=== PATIENT | male | born 1935 | race Caucasian/White ===

== ENCOUNTER 2020-12-16 16:27 | Outpatient (REF) | payer MEDICARE, SELFPAY ==
[2020-12-16 19:49] LABS: Bilirubin Negative (Negative); Blood Large (Negative); Clarity Cloudy (Clear); Glucose Negative (Negative); Ketones Negative (Negative); Leukocyte Esterase Negative (Negative); Nitrite Negative (Negative); Specific Gravity >= 1.030 (1.005-1.025); Urobilinogen 0.2 EU/dL (Up TO 0.2)
[2020-12-16 20:00] LABS: Bacteria Few HPF (Negative); C & S Indicated? C&S Done As Ordered; Casts Negative LPF (Negative); Crystals Negative HPF (Negative); Epithelial Cells Few HPF (Negative); Mucus Trace (Negative); RBC >50 HPF (0-2); WBC 0-2 HPF (0-5)
== END 2020-12-16 16:28 | disposition home or self-care (01) ==
LOC: LBN 16:27
PROVIDERS: Visit Provider Nurse Practitioner Gerontology
DX: N39.0 Urinary tract infection, site not specified (principal)
CPT/HCPCS: 81003; 81015; 87086

== ENCOUNTER 2020-12-21 17:38 | Outpatient (REF) | payer MEDICARE, SELFPAY ==
[2020-12-21 18:52] LABS: Abs Immature Grans 0.09 10^3/uL (0.0-0.06); Absolute Basophil Count 0.05 10^3/uL (0.0-0.2); Absolute Lymphocyte Count 0.66 10^3/uL (1.2-3.4); Absolute Monocyte Count 0.65 10^3/uL (0.1-0.8); Absolute Neutrophil Count 6.64 10^3/uL (1.2-6.7); Basophils % 0.6; Eosinophils % 1.2; HCT 43.9 % (40.0-50.0); HGB 14.1 g/dL (13.5-17.5); Immature Grans % 1.1; Lymphocytes % 8.1; MCH 29.1 pg (27.0-33.0); MCHC 32.1 % (32.0-36.0); MCV 90.5 fL (80-95); MPV 11.6 fL (8.0-11.0); Monocytes % 7.9; Neutrophils % 81.1; Nucleated RBC 0 %; Platelet Count 292 10^3/uL (130-400); RBC 4.85 10^6/uL (4.36-5.78); RDW 13.8 % (11.8-14.1); RDW-SD 45.8 fL; WBC 8.19 10^3/uL (4.4-10.8)
[2020-12-21 19:39] LABS: ALT 29 U/L (16-63); AST 15 U/L (15-37); Albumin 3.3 g/dL (3.4-5.0); Alkaline Phosphatase 71 U/L (46-116); Anion Gap 10.1 mmol/L (3-11); BUN 19 mg/dL (7-18); Bilirubin, Total 0.6 mg/dL (0.2-1.0); CO2 25.9 mmol/L (21.0-32.0); Calcium 8.9 mg/dL (8.5-10.1); Chloride 104 mmol/L (98-107); Glucose 148 mg/dL (74-106); Potassium 4.3 mmol/L (3.5-5.1); Sodium 140 mmol/L (136-145); TSH (W/Ref FT4) 4.35 uIU/mL (0.36-3.74); Vitamin B12 797 pg/mL (193-986)
[2020-12-21 19:48] LABS: Magnesium 2.2 mg/dL (1.8-2.4)
[2020-12-21 19:53] LABS: Iron 58 ug/dL (65-175); Total Iron Binding Capacity 245 ug/dL (250-450); Transferrin Sat 24 % (20-55)
[2020-12-21 20:08] LABS: FREE T4 1.11 ng/dL (0.76-1.46)
[2020-12-22 18:11] LABS: Folate 6.1 ng/mL (See Note)
== END 2020-12-21 17:39 | disposition home or self-care (01) ==
LOC: LBN 17:38
PROVIDERS: Visit Provider Nurse Practitioner Gerontology
DX: I48.0 Paroxysmal atrial fibrillation; R44.0 Auditory hallucinations; G91.2 (Idiopathic) normal pressure hydrocephalus; F10.27 Alcohol dependence with alcohol-induced persisting dementia; R53.1 Weakness; K70.30 Alcoholic cirrhosis of liver without ascites
CPT/HCPCS: 80053; 82607; 82746; 83540; 83550; 83735; 84439; 84443; 85025

== ENCOUNTER 2021-01-04 16:44 | Outpatient (REF) | payer MEDICARE, SELFPAY ==
[2021-01-04 17:22] LABS: VALPROIC ACID 41.7 ug/mL
[2021-01-04 18:32] LABS: ALT 49 U/L (16-63); AST 28 U/L (15-37); Albumin 2.9 g/dL (3.4-5.0); Alkaline Phosphatase 61 U/L (46-116); Anion Gap 14.2 mmol/L (3-11); BUN 20 mg/dL (7-18); Bilirubin, Total 0.5 mg/dL (0.2-1.0); CO2 23.8 mmol/L (21.0-32.0); CREATININE 0.9 mg/dL (0.70-1.30); Calcium 8.9 mg/dL (8.5-10.1); Chloride 103 mmol/L (98-107); Glucose 121 mg/dL (74-106); Potassium 4.2 mmol/L (3.5-5.1); Sodium 141 mmol/L (136-145)
== END 2021-01-04 16:45 | disposition home or self-care (01) ==
LOC: LBN 16:44
PROVIDERS: Visit Provider Internal Medicine
DX: I48.0 Paroxysmal atrial fibrillation (principal); F10.27 Alcohol dependence with alcohol-induced persisting dementia; F03.90 Unspecified dementia, unspecified severity, without behavioral disturbance, psychotic disturbance, mood disturbance, and anxiety
CPT/HCPCS: 80053; 80164

== ENCOUNTER 2021-02-10 16:11 | Outpatient (REF) | payer MEDICARE, SELFPAY ==
[2021-02-10 16:36] LABS: Abs Immature Grans 0.08 10^3/uL (0.0-0.06); Absolute Basophil Count 0.06 10^3/uL (0.0-0.2); Absolute Eosinophil Count 0.06 10^3/uL (0.0-0.7); Absolute Lymphocyte Count 0.87 10^3/uL (1.2-3.4); Absolute Monocyte Count 0.91 10^3/uL (0.1-0.8); Basophils % 0.8; Eosinophils % 0.8; HCT 41.4 % (40.0-50.0); HGB 13.1 g/dL (13.5-17.5); Immature Grans % 1.1; Lymphocytes % 12.3; MCH 28.4 pg (27.0-33.0); MCHC 31.6 % (32.0-36.0); MCV 89.8 fL (80-95); Monocytes % 12.9; Neutrophils % 72.1; Nucleated RBC 0 %; Platelet Count 264 10^3/uL (130-400); RBC 4.61 10^6/uL (4.36-5.78); RDW 13.5 % (11.8-14.1); RDW-SD 44.2 fL; WBC 7.08 10^3/uL (4.4-10.8)
[2021-02-10 16:46] LABS: VALPROIC ACID 9.7 ug/mL
[2021-02-10 17:06] LABS: Hemoglobin A1C 6.5 % (<5.7)
== END 2021-02-10 16:12 | disposition home or self-care (01) ==
LOC: LBN 16:11
PROVIDERS: Visit Provider Nurse Practitioner Gerontology
DX: E11.65 Type 2 diabetes mellitus with hyperglycemia (principal); R53.1 Weakness; F10.27 Alcohol dependence with alcohol-induced persisting dementia; Z51.81 Encounter for therapeutic drug level monitoring
CPT/HCPCS: 80164; 83036; 85025

== ENCOUNTER 2021-03-21 19:05 | Outpatient (REF) | payer MEDICARE, SELFPAY ==
[2021-03-21 17:28] LABS: Abs Immature Grans 0.09 10^3/uL (0.0-0.06); Absolute Basophil Count 0.08 10^3/uL (0.0-0.2); Absolute Eosinophil Count 0.03 10^3/uL (0.0-0.7); Absolute Lymphocyte Count 0.72 10^3/uL (1.2-3.4); Absolute Neutrophil Count 4.94 10^3/uL (1.2-6.7); Basophils % 1.3; Eosinophils % 0.5; HCT 44.3 % (40.0-50.0); Immature Grans % 1.4; Lymphocytes % 11.3; MCH 28.5 pg (27.0-33.0); MCHC 31.6 % (32.0-36.0); MPV 10.8 fL (8.0-11.0); Monocytes % 7.9; Neutrophils % 77.6; Nucleated RBC 0 %; Platelet Count 287 10^3/uL (130-400); RBC 4.92 10^6/uL (4.36-5.78); RDW 14.7 % (11.8-14.1); RDW-SD 48.3 fL; WBC 6.36 10^3/uL (4.4-10.8)
[2021-03-21 17:36] LABS: VALPROIC ACID 90.6 ug/mL
[2021-03-21 17:37] LABS: ALT 20 U/L (16-63); AST 13 U/L (15-37); Albumin 2.4 g/dL (3.4-5.0); Alkaline Phosphatase 56 U/L (46-116); Anion Gap 5.5 mmol/L (3-11); BUN 18 mg/dL (7-18); Bilirubin, Total 0.3 mg/dL (0.2-1.0); CO2 31.5 mmol/L (21.0-32.0); CREATININE 0.9 mg/dL (0.70-1.30); Calcium 8.8 mg/dL (8.5-10.1); Chloride 105 mmol/L (98-107); Glucose 158 mg/dL (74-106); Sodium 142 mmol/L (136-145)
== END 2021-03-21 19:06 | disposition home or self-care (01) ==
LOC: LBN 19:05
PROVIDERS: Visit Provider Internal Medicine
DX: K70.30 Alcoholic cirrhosis of liver without ascites (principal); R53.1 Weakness; I48.0 Paroxysmal atrial fibrillation; G91.2 (Idiopathic) normal pressure hydrocephalus
CPT/HCPCS: 80053; 80164; 85025

== ENCOUNTER 2021-03-29 15:14 | Outpatient (REF) | payer MEDICARE, SELFPAY ==
--- OUTSIDE RECORDS SUMMARY | 2021-03-29 15:21 | XMS_ITS ---
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 05432525 anxiety disorder Problem Unspecified 401.9 Active 35383428 essential hypertension Problem Alzheimer's G30.9 Active 45495439 disease, unspecified 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 Problem 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 96192629 dementia without behavioral disturbance Problem 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 ALLERGIES No Known Allergies ENCOUNTERS Encounter Location Date Diagnosis [facility] [address] [place] [address] Rd Dec, [facility] [address] [place], [place] [id number] [facility] [address] [place] [address] Rd Nov, Malignant neuroleptic [facility] [address] [place] syndrome G21.0 and [id number] Generalized anxi ety disorder F41.1 [facility] [address] [place] [address] Rd Oct, Other psy chotic disorder [facility] [address] [place] not due t o a substance or [id number] known physiologi dylan condition F28 an d Low back pain M54.5 [facility] [address] [place] [address] Rd Oct, Low back pain M54.5 [facility] [address] [place], [place] [id number] [facility] [address] [place] [address] Rd Jul, Alzheimer 's disease, [facility] [address] [place], [place] unspecifi ed G30.[id number] 04 Dec, 2019 Encounter for general [facility] [address] [place] adult med ical examination [id number] without abnormal findings Z00.00 ; Hydroce phalus, unspecified G91. 9 ; Alzheimer's dise ase, unspecified G30. 9 ; Hyperglycemia, u nspecified R73.[address] for immunization Z23 [address] 15 Feb, 2019 Alzheimer 's disease, [facility] [address] [place] [address] unspecifi ed G30.[id number] Feb, Medicine [address] [place] [id number] Nov, Encounter for general [facility] [address] [place] [address] adult med ical examination [id number] with abnormal fi ndings Z00.01 ; Hydroce phalus, unspecified G91. 9 ; Alzheimer's dise ase, unspecified G30. 9 and Unspecified laz ntia without behavior al disturbance F03. [address] Nov, Alzheimer 's disease, [facility] [address] [place] [address] unspecifi ed G30.[id number] August, Periumbil ic swelling, mass [facility] [address] [place] [address] or lump R 19.[id number] August, Trigger f bel, left ring [facility] [address] [place], [place] finger M6 5.342 ; Encounter [id number] for other prepro cedural examination Z01. 818 and Hydrocephalus, u nspecified G91.[address] Jun, Trigger f bel, left ring [facility] [address] [place] finger M6 5.342 and [id number] Hydrocephalus, u nspecified G91.[address] Nov, [facility] [address] [place] [id number] Nov, Encounter for general [facility] [address] [place] adult med ical examination [id number] with abnormal fi ndings Z00.01 ; Hydroce phalus, unspecified G91. 9 ; Alzheimer's dise ase, unspecified G30. 9 and Confusional arou sals G47.51 [facility] [address] Feb, [facility] [address] [place], [place] [id number] [facility] [address] [place] [address] Rd Nov, Encounter for general [facility] [address] [place] adult med ical examination [id number] with abnormal fi ndings Z00.01 and Dunreith cephalus, unspecified G91. 9 [facility] [address] [place] [address] Rd Sep, Hydroceph alus, unspecified [facility] [address] [place] G91.9 [id number] [facility] [address] [place] [address] Rd August, Alzheimer 's disease, [facility] [address] [place] unspecifi ed G30.9 and [id number] Early-onset cere bellar ataxia G11.1 [facility] [address] [place] [address] Rd Jun, Ataxia, u nspecified R27.0 [facility] [address] [place], [place] [id number] [facility] [address] [place] [address] Rd Jun, [facility] [address] [place] [id number] [address] Jun, Hydroceph alus, unspecified [facility] [address] [place] G91.[id number] Nov, Hydroceph alus, unspecified [facility] [address] [place] G91.9 [id number] [facility] [address] [place] [address] Rd Nov, Encounter for general [facility] [address] [place] adult med ical examination [id number] with abnormal fi ndings Z00.01 and Ataxi a, unspecified R27. 0 [facility] [address] [place] [address] Rd Jul, Dizziness and giddiness [facility] [address] [place], [place] R42 [id number] Nov, Routine g eneral medical [facility] [address] [place] examin[place] [facility] at [facility] [id number] facility V70.0 ; Unspecified esse ntial hypertension 401 .9 and Allergic rhiniti s, cause unspecified 477. [address] [place] [address] 15 Sep, 2014 Dizziness and giddiness [facility] [address] [place], [place] 780.4 [id number] [facility] [address] [place] [address] Rd Jul, Unspecifi ed cataract 366.9 [facility] [address] [place] and Unspe cified [id number] pre-operative ex amination V72.84 [facility] [address] [place] [address] Rd Nov, Routine g eneral medical [facility] [address] [place] examinati on at [facility] [id number] facility V70.0 ; Unspecified esse ntial hypertension 401 .9 ; Allergic rhiniti s, cause unspecified 477. 9 ; Impacted cerumen 380.4 ; Unspecified laby rinthitis 386.30 and Need for prophylactic vac cination and inoculation, Influenza V04.81 [facility] [address] [place] [address] Rd August, [facility] [address] [place], [place] [id number] [facility] [address] [place] [address] Rd Nov, Routine g eneral medical [facility] [address] [place] examin[place] at [facility] [id number] facility V70.0 ; Unspecified esse ntial hypertension 401 .9 and Allergic rhiniti s, cause unspecified 477. 9 [facility] [address] [place] [address] Rd Oct, [facility] [address] [place] [id number] [address] Jan, [facility] [address] [place] [id number] [address] Oct, Routine g eneral medical [facility] [address] [place] examin[place] on at [facility] [id number] facility V70.0 a nd Unspecified esse ntial hypertension 401 .9 [facility] [address] [place] [address] Rd Jun, [facility] [address] [place], [place] [id number] IMMUNIZATIONS Vaccine Route Administration Date Status FLUAD Unknown Dec 19, 2019 Administered Prevnar 13 Unknown Nov 24, 2017 Administered Pneumococcal Unknown Nov 18, 2002 Administered Influenza (split) Unknown Nov 24, 2017 Administered Influenza (split) Unknown 2016 Administered Influenza (split) Unknown Nov 19, 2013 Administered DTaP Unknown Nov 24, 2017 Administered SOCIAL HISTORY Qualifiers Date Never Smoker REASON FOR REFERRAL FUNCTIONAL STATUS PLAN OF CARE Activity Details Follow Up prn Reason: Pending Test Urinalysis, Routine Pending Test Urinalysis, Routine Pending Test Urinalysis, Routine Pending Test Urinalysis, Routine Pending Test Urinalysis, Routine Future/Pending Procedure ECG RECORDING VITAL SIGNS Height 67 in 2020-11-18 Height 67 in 2020-11-10 Height 67 in 2020-07-23 Height 67 in 2019-12-19 Height 67 in 2018-12-09 Height 67 in 2018-08-20 Height 67 in 2018-07-02 Height 67 in 2017-11-23 Height 67 in 2016-11-22 Height 67 in 2016-09-25 Height 67 in 2016-08-24 Height 67 in 2016-06-26 Height 67 in 2016-06-15 Height 67 in 2015-11-22 Height 67 in 2015-07-19 Height 67 in 2014-11-20 Height 67 in 2014-09-28 Height 67 in 2014-07-20 Height 67 in 2013-11-19 Height 67 in 2012-11-18 Height 67 in 2011-10-16 Weight 222 lbs 2019-12-19 Weight 205 lbs 2018-12-09 Weight 210 lbs 2018-08-20 Weight 215 lbs 2018-07-02 Weight 205 lbs 2017-11-23 Weight 188 lbs 2016-11-22 Weight 185 lbs 2016-09-25 Weight 185 lbs 2016-08-24 Weight 185 lbs 2016-06-26 Weight 185 lbs 2016-06-15 Weight 182 lbs 2015-11-22 Weight 182 lbs 2015-07-19 Weight 180 lbs 2014-11-20 Weight 190 lbs 2014-09-28 Weight 185 lbs 2014-07-20 Weight 185 lbs 2013-11-19 Weight 180 lbs 2012-11-18 Weight 169 lbs 2011-10-16 BMI 34.77 kg/m2 2019-12-19 BMI 32.10 kg/m2 2018-12-09 BMI 32.89 kg/m2 2018-08-20 BMI 33.67 kg/m2 2018-07-02 BMI 32.10 kg/m2 2017-11-23 BMI 29.44 kg/m2 2016-11-22 BMI 28.97 kg/m2 2016-09-25 BMI 28.97 kg/m2 2016-08-24 BMI 28.97 kg/m2 2016-06-26 BMI 28.97 kg/m2 2016-06-15 BMI 28.50 kg/m2 2015-11-22 BMI 28.50 kg/m2 2015-07-19 BMI 28.19 kg/m2 2014-11-20 BMI 29.75 kg/m2 2014-09-28 BMI 28.97 kg/m2 2014-07-20 BMI 28.97 kg/m2 2013-11-19 BMI 28.19 kg/m2 2012-11-18 BMI 26.47 kg/m2 2011-10-16 Blood pressure systolic 140 mm Hg 2019-12-19 Blood pressure diastolic 84 mm Hg 2019-12-19 MEDICATIONS Medication Instructions Dosage Frequency Start End Duration Statu s Date Date traZODone HCl Orally Once a 1 tablet at 24h Nov, day(s ) Active 100 MG day bedtime 2020 Fluticasone Nasally Once a inhale 2 24h Acti ve Propionate 50 day sprays into each nostril once daily Aricept 5 MG Orally bid 1 tablet 12h 90 days Active PROCEDURES Procedure Date Ordered Result Body Site DOC MEDS VERIFIED W/PT OR RE September 28, 2014 ANNUAL WELLNESS VST; PPS SUBSQT VST Nov 22, 2015 DOC MEDS VERIFIED W/PT OR RE Nov 19, 2013 PNEUMOC IMM ORDER/ADMIN September 28, 2014 DOC MEDS VERIFIED W/PT OR RE Nov 20, 2014 LIPID PANEL October 16, 2011 ANNUAL WELLNESS VST; PPS SUBSQT VST Nov 18, 2012 COMPREHEN METABOLIC PANEL October 16, 2011 ANNUAL WELLNESS VST; PPS SUBSQT VST Nov 19, 2013 ANNUAL WELLNESS VST; PPS SUBSQT VST Dec 09, 2018 ANNUAL WELLNESS VST; PPS SUBSQT VST October 16, 2011 DOC MEDS VERIFIED W/PT OR RE June 15, 2016 -ELECTROCARDIOGRAM, COMPLETE August 20, 2018 PNEUMOC IMM ORDER/ADMIN September 25, 2016 DOC MEDS VERIFIED W/PT OR RE June 26, 2016 DOC MEDS VERIFIED W/PT OR RE July 19, 2015 URINE-NO MICRO Nov 19, 2013 URINE-NO MICRO Nov 22, 2015 ANNUAL WELLNESS VST; PPS SUBSQT VST Nov 22, 2016 ANNUAL WELLNESS VST; PPS SUBSQT VST Nov 23, 2017 COLONOSCOPY AND BIOPSY 2009-10-15 Normal PNEUMOC IMM ORDER/ADMIN July 20, 2014 PNEUMOC IMM ORDER/ADMIN Nov 22, 2015 PNEUMOC IMM ORDER/ADMIN Nov 18, 2012 ADMN FLU VAC NO FEE SCHED SAME DAY Nov 19, 2013 URINE-NO MICRO Nov 20, 2014 ADMN FLU VAC NO FEE SCHED SAME DAY Dec 19, 2019 Flu Vacc Split 3 yr & > IM Fluvirin Nov 19, 2013 URINE-NO MICRO October 16, 2011 ANNUAL WELLNESS VST; PPS SUBSQT VST Dec 19, 2019 DOC MEDS VERIFIED W/PT OR RE Nov 22, 2015 URINE-NO MICRO Nov 18, 2012 PNEUMOC IMM ORDER/ADMIN August 24, 2016 FLUAD QIV Dec 19, 2019 PNEUMOC IMM ORDER/ADMIN Nov 24, 2015 DOC MEDS VERIFIED W/PT OR RE Nov 22, 2016 PNEUMOC IMM ORDER/ADMIN July 19, 2015 PT RCV HOSPC SRVC ANY TM DUR MSR FL Nov 22, 2016 DOC MEDS VERIFIED W/PT OR RE July 20, 2014 PNEUMOC IMM ORDER/ADMIN Nov 19, 2013 DOC MEDS VERIFIED W/PT OR RE Nov 24, 2015 EAR IRRIGATION Nov 19, 2013 DOC MEDS VERIFIED W/PT OR RE August 24, 2016 DOC MEDS VERIFIED W/PT OR RE Nov 18, 2012 ANNUAL WELLNESS VST; PPS SUBSQT VST Nov 20, 2014 PNEUMOC IMM ORDER/ADMIN June 26, 2016 PNEUMOC IMM ORDER/ADMIN June 15, 2016 DOC MEDS VERIFIED W/PT OR RE September 25, 2016 RESULTS Name Result Date Reference Range CBC, NO DIFF 2020-11-24 URINALYSIS COMPLETE 2020-11-23 COLOR Yellow YELLOW CLARITY Clear CLEAR SPECIFIC GRAVITY >=1.030 1.000-1.030 pH 5.5 5.0-8.0 PROTEIN 100 mg/dL NEGATIVE GLUCOSE Negative NEGATIVE KETONES 40 mg/dL NEGATIVE UROBILINOGEN 0.2 E.U./dL 0.2 E.U./DL BILIRUBIN Moderate NEGATIVE BLOOD Small NEGATIVE LEUKOCYTES Negative NEGATIVE NITRITES Negative NEGATIVE RBCs 4-6 0-3 SQ EPITHELIAL CELLS 0-3 0-3 RTE CELLS 0-3 TRANSITIONAL EPIs 0-3 BACTERIA NONE SEEN NONE SEEN CRYSTALS NONE SEEN HYALINE CASTS 0-3 NONE SEEN GRANULAR CASTS NONE SEEN RBC CASTS NONE SEEN WBC CASTS NONE SEEN WAXY CASTS NONE SEEN YEAST NONE SEEN TRICHOMONADS NONE SEEN CT ANGIO NECK 2020-11-23 URINALYSIS DIP w/REFLEX MICRO 2020-11-15 COLOR Yellow YELLOW CLARITY Clear CLEAR SPECIFIC GRAVITY 1.020 1.000-1.030 pH 5.5 5.0-8.0 PROTEIN Negative NEGATIVE GLUCOSE Negative NEGATIVE KETONES 15 mg/dL NEGATIVE UROBILINOGEN 0.2 E.U./dL 0.2 E.U./DL BILIRUBIN Negative NEGATIVE BLOOD Negative NEGATIVE LEUKOCYTES Negative NEGATIVE NITRITES Negative NEGATIVE XR LUMBAR SPINE 2 OR 3 VIEW 2020-11-15 XR PELVIS 2020-11-15 BASIC METABOLIC PROFILE 2019-12-19 A/GAP 10.0 3.0-12.0 OSMOLARITY 283 275-295 B/CR 22.2 8.0-20.0 CBC, WITH AUTO DIFF 2018-12-09 COMPREHENSIVE METABOLIC PROFILE 2018-12-09 ALBUMIN 3.9 3.5-5.0 ALKALINE PHOS 52 32-92 A/GAP 8.0 3.0-12.0 B/CR 20.4 8.0-20.0 OSMOLARITY 289 275-295 GLOBULIN 2.5 2.3-3.5 A/G 1.6 1.0-2.5 TSH 2018-12-09 TSH 3.27 0.45-5.33 CT ABD/PELVIS WO CONTRAST 2018-08-22 CBC, WITH AUTO DIFF 2017-11-23 COMPREHENSIVE METABOLIC PROFILE 2017-11-23 ALBUMIN 3.9 3.5-5.0 ALKALINE PHOS 42 38-130 A/GAP 7.0 3.0-12.0 B/CR 26.4 8.0-20.0 OSMOLARITY 280 275-295 GLOBULIN 2.1 2.3-3.5 A/G 1.9 1.0-2.5 TSH 2017-11-23 TSH 2.39 0.45-5.33 VITAMIN B12 & FOLATE 2015-11-22 CBC, WITH AUTO DIFF 2015-11-22 COMPREHENSIVE METABOLIC PROFILE 2015-11-22 A/GAP 10.0 3.0-12.0 B/CR 25.0 8.0-20.0 OSMOLARITY 286 275-295 GLOBULIN 2.5 2.3-3.5 A/G 1.5 1.0-2.5 TSH 2015-11-22 CT HEAD WO CONTRAST 2015-11-22 COMPREHENSIVE METABOLIC PROFILE 2013-11-19 A/GAP 8.0 3.0-12.0 B/CR 20.0 8.0-20.0 OSMOLARITY 288 275-295 GLOBULIN 2.4 2.3-3.5 A/G 1.6 1.0-2.5 LIPID PROFILE 2013-11-19 LDL (CALCULATED) 133 RISK RATIO 3.1 COMPREHENSIVE METABOLIC PROFILE 2012-11-18 ANION GAP 11.0 3.0-12.0 BUN/CREATININE RATIO 21.6 8.0-20.0 OSMOLARITY 285 275-295 GLOBULIN 2.7 2.3-3.5 ALBUMIN/GLOBULIN RATIO 1.4 1.0-2.5 LIPID PROFILE 2012-11-18 LDL (CALCULATED) 155 10-100 RISK RATIO 3.3 COMPREHENSIVE METABOLIC PROFILE 2011-10-16 SODIUM 136 136-145 POTASSIUM 4.5 3.5-5.1 CHLORIDE 103 99-108 CO2 28 21-31 CALCIUM 8.8 8.4-10.2 GLUCOSE 102 70-105 BLOOD UREA NITROGEN 24 7-22 CREATININE 0.95 0.40-1.10 TOTAL BILIRUBIN 0.8 0.2-1.2 TOTAL PROTEIN 6.1 6.4-8.3 ALBUMIN 3.7 3.5-5.0 ALKALINE PHOSPHATASE 40 32-92 ALT 24 10-40 AST 25 10-42 ANION GAP 5.0 3.0-12.0 BUN/CREATININE RATIO 25.3 8.0-20.0 OSMOLARITY 276 275-295 GLOBULIN 2.4 2.3-3.5 ALBUMIN/GLOBULIN RATIO 1.5 1.0-2.5 LIPID PROFILE 2011-10-16 CHOLESTEROL 211 129-209 TRIGLYCERIDES 42 48-210 HDL CHOLESTEROL 57 31-76 LDL (CALCULATED) 145.6 10.0-100.0 RISK RATIO 3.7 REASON FOR VISIT no show, 1 month follow up, Hospital follow up, ED follow up, Xuan says his anxiety is worse, would like to start a medication if possible to help, back pain, 6 month follow up, Medicare Annual, Medicare Annual, growth in abdomen in past day, Pre Op for trigger finger, referral to [facility], trigger finger, spot on forehead that is changing, Medicare Annual, Medicare Annual, 1 month follow up, Handicap parking, need rollator walker perscription, referral, would like to have orders for PT, follow up on test, Medicare Annual, balance , Medicare Annual, BP seems high and he feels off balance, Pre Op, Medicare Annual, Annual, refill, annual visit, Message Insurance Providers [facility] Member Patient Patient Patient Patient Patient Subscriber Subscriber Subscriber Group Insurance Plan Plan Plan Plan ID Relationship Address Phone Name Date of ID Name Date of No Type Insurance Insurance Insurance Coverage to Subscriber Address Phone Name Dates Medicare Fabiola'l Medicare self Adonis [id number] [facility] [employer] [facility] [address] [place] [address] Medicare Fabiola'l Medicare self Adonis [id number] [facility] [employer] [address] [place] [address] [facility] self Adonis [id number] [employer] [address] [facility] [address]
[2021-03-29 17:46] LABS: Anion Gap 5.8 mmol/L (3-11); BUN 17 mg/dL (7-18); CO2 29.2 mmol/L (21.0-32.0); CREATININE 0.7 mg/dL (0.70-1.30); Calcium 8.4 mg/dL (8.5-10.1); Chloride 107 mmol/L (98-107); Glucose 95 mg/dL (74-106); Potassium 4.3 mmol/L (3.5-5.1); Sodium 142 mmol/L (136-145)
== END 2021-03-29 15:15 | disposition home or self-care (01) ==
LOC: LBN 15:14
PROVIDERS: Visit Provider Nurse Practitioner Gerontology
DX: R53.1 Weakness (principal); I48.0 Paroxysmal atrial fibrillation; K70.30 Alcoholic cirrhosis of liver without ascites; G91.2 (Idiopathic) normal pressure hydrocephalus
CPT/HCPCS: 80048

== ENCOUNTER 2021-06-14 14:37 | Outpatient (REF) | payer MEDICARE, SELFPAY ==
[2021-06-14 15:53] LABS: Anion Gap 10.1 mmol/L (3-11); BUN 27 mg/dL (7-18); CO2 26.9 mmol/L (21.0-32.0); CREATININE 0.8 mg/dL (0.70-1.30); Calcium 8.7 mg/dL (8.5-10.1); Chloride 105 mmol/L (98-107); Glucose 82 mg/dL (74-106); Potassium 4.3 mmol/L (3.5-5.1); Sodium 142 mmol/L (136-145)
[2021-06-14 15:54] LABS: VALPROIC ACID 91.1 ug/mL
== END 2021-06-14 14:38 | disposition home or self-care (01) ==
LOC: LBN 14:37
PROVIDERS: Visit Provider Nurse Practitioner Gerontology
DX: F41.1 Generalized anxiety disorder (principal); I48.0 Paroxysmal atrial fibrillation; U07.1 COVID-19; E11.65 Type 2 diabetes mellitus with hyperglycemia
CPT/HCPCS: 80048; 80164; 83036

== ENCOUNTER 2021-06-21 16:34 | Outpatient (REF) | payer MEDICARE, SELFPAY ==
[2021-06-21 15:47] LABS: Abs Immature Grans 0.11 10^3/uL (0.0-0.06); Absolute Basophil Count 0.04 10^3/uL (0.0-0.2); Absolute Eosinophil Count 0.03 10^3/uL (0.0-0.7); Absolute Lymphocyte Count 1.02 10^3/uL (1.2-3.4); Absolute Neutrophil Count 4.59 10^3/uL (1.2-6.7); Basophils % 0.6; Eosinophils % 0.4; HCT 42.8 % (40.0-50.0); HGB 13.6 g/dL (13.5-17.5); Immature Grans % 1.6; MCHC 31.8 % (32.0-36.0); MCV 97.5 fL (80-95); MPV 10.7 fL (8.0-11.0); Monocytes % 14.7; Neutrophils % 67.7; Nucleated RBC 0 %; Platelet Count 206 10^3/uL (130-400); RBC 4.39 10^6/uL (4.36-5.78); RDW 15.3 % (11.8-14.1); RDW-SD 55.2 fL; WBC 6.79 10^3/uL (4.4-10.8)
== END 2021-06-21 16:35 | disposition home or self-care (01) ==
LOC: LBN 16:34
PROVIDERS: Visit Provider Nurse Practitioner Gerontology
DX: G91.2 (Idiopathic) normal pressure hydrocephalus (principal); I48.0 Paroxysmal atrial fibrillation; K70.30 Alcoholic cirrhosis of liver without ascites; R60.9 Edema, unspecified
CPT/HCPCS: 85025

== ENCOUNTER 2021-06-28 17:57 | Outpatient (REF) | payer MEDICARE, SELFPAY ==
[2021-06-28 20:06] LABS: Anion Gap 6.9 mmol/L (3-11); BUN 29 mg/dL (7-18); CO2 27.1 mmol/L (21.0-32.0); CREATININE 0.8 mg/dL (0.70-1.30); Calcium 8.5 mg/dL (8.5-10.1); Chloride 108 mmol/L (98-107); Glucose 84 mg/dL (74-106); Potassium 4.5 mmol/L (3.5-5.1); Sodium 142 mmol/L (136-145)
[2021-06-30 09:17] LABS: Prealbumin 22 mg/dL (20-40)
== END 2021-06-28 17:58 | disposition home or self-care (01) ==
LOC: LBN 17:57
PROVIDERS: Visit Provider Nurse Practitioner Gerontology
DX: I48.0 Paroxysmal atrial fibrillation (principal); K70.30 Alcoholic cirrhosis of liver without ascites; R60.9 Edema, unspecified; F10.27 Alcohol dependence with alcohol-induced persisting dementia; G91.2 (Idiopathic) normal pressure hydrocephalus; M62.81 Muscle weakness (generalized)
CPT/HCPCS: 80048; 84134

== ENCOUNTER 2021-07-19 15:54 | Outpatient (REF) | payer MEDICARE, SELFPAY ==
[2021-07-19 17:10] LABS: VALPROIC ACID 63.1 ug/mL
== END 2021-07-19 15:55 | disposition home or self-care (01) ==
LOC: LBN 15:54
PROVIDERS: Visit Provider Nurse Practitioner Gerontology
DX: F10.27 Alcohol dependence with alcohol-induced persisting dementia (principal); G91.2 (Idiopathic) normal pressure hydrocephalus; Z51.81 Encounter for therapeutic drug level monitoring; Z79.899 Other long term (current) drug therapy
CPT/HCPCS: 80164